=== PATIENT | female | born 1975 | race American Indian/Alaskan Native ===

== ENCOUNTER 2017-02-17 14:22 | Emergency (ER) | payer BC ==
[2017-02-17 14:22] VITALS: BMI 21.3
[2017-02-17 14:45] VITALS: TEMP 98.1
--- NOTE | 2017-02-17 15:51 | C.PDOC ---
History Of Present Illness 41 y/o female 11 weeks gestation is sent by saw runner (Dr. Jalloh) for evaluation on feeling hypotension, dizziness and nausea developed while at office. b/p was reported to be low in the office of dr jalloh. Patient denies sob , fever, chest pain, back pain, vaginal bleeding or any other any other complaints at this time. dr jalloh advises he will discuss with pmd (dr biggs) for admission. Time Seen by Provider: 02/17/17 15:51 Chief Complaint (Nursing): Dizziness/Lightheaded History Per: Patient History/Exam Limitations: no limitations Onset/Duration Of Symptoms: Hrs Past Medical History Reviewed: Historical Data, Nursing Documentation, Vital Signs Vital Signs: Last Vital Signs Temp 98.1 F 02/17/17 14:41 Pulse 68 02/17/17 17:00 Resp 18 02/17/17 17:00 BP 99/57 L 02/17/17 17:00 Pulse Ox 99 02/17/17 18:16 - Medical History PMH: Anxiety, Bronchitis, Fractures (TOE NO SURGERY), Gastritis, Kidney Stones ( PASSED), Mitral Valve Prolapse Surgical History: Endoscopy - [facility] Procedures CORONAR ARTERIOGR-2 CATH (08/30/13) INJECT/INFUSE NEC (12/15/04) LEFT HEART CARDIAC CATH (08/30/13) LT HEART ANGIOCARDIOGRAM (08/30/13) NONOPERATIVE EXAMS NEC (11/27/13) OTHER ENDOSCOPY OF SM INTEST (11/27/13) Family History: States: No Known Family Hx - Social History Hx Tobacco Use: No Hx Alcohol Use: No Hx Substance Use: No - Immunization History Hx Tetanus Toxoid Vaccination: No Hx Influenza Vaccination: No Hx Pneumococcal Vaccination: No Review Of Systems Except As Marked, All Systems Reviewed And Found Negative. Gastrointestinal: Positive for: Nausea Neurological: Positive for: Dizziness Physical Exam - Physical Exam Appears: Non-toxic, No Acute Distress Skin: Normal Color, Warm, Dry, No Rash Head: Atraumatic, Normacephalic Eye(s): bilateral: Normal Inspection Oral Mucosa: Moist Neck: Normal ROM, Supple Chest: Symmetrical Cardiovascular: Rhythm Regular, No Murmur Respiratory: Normal Breath Sounds, No Rales, No Rhonchi, No Wheezing Gastrointestinal/Abdominal: Tenderness (mild suprapubic ), No Guarding, No Rebound Back: No CVA Tenderness, No Paraspinal Tenderness Neurological/Psych: Oriented x3 ED Course And Treatment - Laboratory Results Result Diagrams: 02/17/17 16:16 02/17/17 16:16 O2 Sat by Pulse Oximetry: 99 (RA) Pulse Ox Interpretation: Normal Against Medical Advice - AMA Patient Left Against Medical Advice: The patient declines admission to the hospital and wishes to leave the Emergency Department. This action is against my medical advice. This decision was made with informed refusal. The patient was told that admission to the hospital is necessary. Explanation of the reasons why were discussed. The risks of leaving were explained to the patient and include, but are not limited to, worsening of known or currently unknown conditions, permanent disability and from undiagnosed or untreated conditions. The patient has the capacity to make this informed decision and understands my explanation of the current medical problem and risks of leaving. The patient voluntarily accepts these risks and signed an AMA form documenting our conversation. The patient was given the opportunity to ask questions and reconsider. The patient was encouraged to return to the Emergency Department at any time for further care. Medical Decision Making Medical Decision Making: r/o dehydration, ectopic, miscarriage- labs imaging penidng 615: pt reasseseD: pt sent in by dr jalloh for admission. now pt refuses, states she needs to go home to take care of work arrangements. signs ama Disposition - Disposition Disposition: AGAINST MEDICAL ADVICE Additional Instructions: you are declining admission to the hospital. return to er with worsening symptoms or concerns. Instructions: (ED), Weakness (ED) Forms: [facility] (Japanese) - Scribe Statement The provider has reviewed the documentation as recorded by the Scribtaco Gomez All medical record entries made by the Scribe were at my direction and personally dictated by me. I have reviewed the chart and agree that the record accurately reflects my personal performance of the history, physical exam, medical decision making, and the department course for this patient. I have also personally directed, reviewed, and agree with the discharge instructions and disposition.
[2017-02-17] MEDS ORDERED: Sodium Chloride 0.9% 1,000 ML IV ONE (15:55)
[2017-02-17] MEDS ORDERED: Sodium Chloride 0.9% 1,000 ML ONE (16:16)
[2017-02-17 16:21] LABS: BASO % 0.4 % (0.0-2.0); EOS # 0.1 K/uL (0.0-0.7); HEMATOCRIT 36.6 % (34.0-47.0); LYMPH # 2.5 K/uL (1.0-4.3); LYMPH % 37.2 % (20.0-40.0); MEAN CELL VOLUME 84.5 fL (81.0-99.0); MEAN CORPUSCULAR HEMOGLOBIN 27.5 pg (27.0-31.0); MEAN CORPUSCULAR HGB CONC 32.5 g/dL (33.0-37.0); MEAN PLATELET VOLUME 6.9 fL (7.2-11.7); MONO # 0.5 K/uL (0.0-0.8); MONO % 8.1 % (0.0-10.0); WHITE BLOOD COUNT 6.7 K/uL (4.8-10.8)
[2017-02-17 16:27] LABS: CHLORIDE 102 mmol/L (98-107)
[2017-02-17 16:28] LABS: POTASSIUM 3.9 mmol/L (3.6-5.2); SODIUM 136 mmol/L (132-148)
[2017-02-17 16:30] LABS: ALB/GLOB RATIO 1.3 (1.0-2.1); AST/SGOT 15 U/L (14-36); BILIRUBIN,TOTAL 1.1 mg/dL (0.2-1.3); CARBON DIOXIDE 21 mmol/L (22-30); GFR AFRICAN-AMERICAN > 60; TOTAL PROTEIN 7.5 g/dL (6.3-8.3)
[2017-02-17 16:31] LABS: ALKALINE PHOSPHATASE 47 U/L (38-126); ALT/SGPT 22 U/L (9-52); BLOOD UREA NITROGEN 6 mg/dL (7-17); CALCIUM 9.1 mg/dl (8.6-10.4); GLUCOSE,RANDOM 83 mg/dL (65-105)
[2017-02-17 17:06] LABS: URINE BACTERIA RARE (<OCC); URINE BILIRUBIN NEGATIVE (NEGATIVE); URINE BLOOD 1+ (NEGATIVE); URINE COLOR Colorless (YELLOW); URINE GLUCOSE (UA) NORMAL (Normal); URINE KETONE NEGATIVE (NEGATIVE); URINE LEUKOCYTE ESTERASE 1+ Leu/uL (Negative); URINE PROTEIN NEGATIVE (NEGATIVE); URINE UROBILINOGEN NORMAL mg/dL (0.2-1.0); WBC URINE 3 /hpf (0-5)
[2017-02-17 17:09] LABS: RBC URINE 3 /hpf (0-3)
--- NOTE | 2017-02-17 18:10 | US ---
PROCEDURE: First trimester ultrasound HISTORY: Abdominal pain and COMPARISON: None TECHNIQUE: Standard protocol for this study/examination. FINDINGS: LMP: 12/04/2016 Prior examinations from the current : None TECHNIQUE: Real-time 2D imaging, duplex and color Doppler. FINDINGS: Cardiac activity: Present Rate: 161 BPM Measurements: [place] rump length: 3.52 cm Gestational age based on CRL 10 weeks 3 days Gestational age based on gestational sac measurement 10 weeks 6 days Gestational age derived from LMP: 10 weeks 5 days HARIS based on LMP: 09/10/2017 HARIS based on biometry: 09/10/2017 Gestational concordance documented Yolk sac not identified Uterus: Unremarkable. No Cervical abnormalities: Negative examination for cervical dilatation or effacement. Closed cervix measures 4.2 cm Subchorionic hemorrhage: None ADNEXA: Right: Obscured by overlying bowel gas. Non diagnostic assessment of right ovary Left: Obscured by overlying bowel gas. Non diagnostic assessment of left ovary. Fluid in the cul-de-sac: None IMPRESSION: Ten weeks 5 days live intrauterine gestation. Gestational concordance documented.
[2017-02-17 18:16] VITALS: O2SAT 99
[2017-02-17 18:19] VITALS: BP 88/49; PULSE 71; RESP 20
== END 2017-02-17 19:04 | disposition left against medical advice (07) ==
LOC: C.ER 14:22
DX: O26.891 Other specified pregnancy related conditions, first trimester (principal); Z3A.11 11 weeks gestation of pregnancy; R53.1 Weakness
CPT/HCPCS: 76805; 76817; 80053; 81001; 84702; 84703; 85025; 85610; 85730; 96360; 99285; J7040

== ENCOUNTER 2017-02-18 22:04 | Inpatient (IN) | payer BC ==
[2017-02-18 22:04] VITALS: BMI 21.3
[2017-02-19] MEDS ORDERED: Sodium Chloride 0.9% 1,000 ML IV ONE (00:17)
[2017-02-19 00:45] LABS: BASO % 0.4 % (0.0-2.0); EOS # 0.1 K/uL (0.0-0.7); LYMPH # 2.9 K/uL (1.0-4.3); LYMPH % 37.1 % (20.0-40.0); MEAN CELL VOLUME 84.6 fL (81.0-99.0); MEAN CORPUSCULAR HGB CONC 33.1 g/dL (33.0-37.0); MEAN PLATELET VOLUME 7.2 fL (7.2-11.7); MONO # 0.6 K/uL (0.0-0.8); MONO % 7.3 % (0.0-10.0); NRBC % 0.4 % (0.0-2.0); RED CELL DISTRIBUTION WIDTH 13.5 % (11.5-14.5); WHITE BLOOD COUNT 7.7 K/uL (4.8-10.8)
[2017-02-19 00:51] LABS: ALB/GLOB RATIO 1.4 (1.0-2.1); ALKALINE PHOSPHATASE 47 U/L (38-126); ALT/SGPT 22 U/L (9-52); AST/SGOT 15 U/L (14-36); BILIRUBIN,TOTAL 1.3 mg/dL (0.2-1.3); BLOOD UREA NITROGEN 7 mg/dL (7-17); CALCIUM 9.4 mg/dl (8.6-10.4); CARBON DIOXIDE 20 mmol/L (22-30); CHLORIDE 100 mmol/L (98-107); GFR AFRICAN-AMERICAN > 60; GLUCOSE,RANDOM 82 mg/dL (65-105); POTASSIUM 3.8 mmol/L (3.6-5.2); SODIUM 135 mmol/L (132-148); TOTAL PROTEIN 7.4 g/dL (6.3-8.3)
--- NOTE | 2017-02-19 05:58 | C.PDOC ---
History Of Present Illness Pt is . She was sent in by Dr. Sam for admission due to dizziness and hypotension. She was seen here yesterday, but signed out AMA from the ED because she had to take care of something at home. She returns today to be admitted as planned. Time Seen by Provider: 02/18/17 23:50 Chief Complaint (Nursing): Dizziness/Lightheaded History Per: Patient Onset/Duration Of Symptoms: Days (few) Current Symptoms Are (Timing): Still Present Associated Symptoms Preceding Syncopal Episode: Lightheadedness, Worse With Standing Fall Associated With With Symptoms: No Severity: Moderate Additional History Per: Prior Records - Symptoms Of CVA Recent Head Trauma: No Past Medical History Reviewed: Historical Data, Nursing Documentation, Vital Signs Vital Signs: Last Vital Signs Temp 98 F 02/19/17 00:58 Pulse 67 02/19/17 02:38 Resp 20 02/19/17 02:38 BP 95/61 L 02/19/17 02:38 Pulse Ox 100 02/19/17 02:38 - Medical History PMH: Anxiety, Bronchitis, Fractures (TOE NO SURGERY), Gastritis, Kidney Stones ( PASSED), Mitral Valve Prolapse Surgical History: Endoscopy - [facility] Procedures CORONAR ARTERIOGR-2 CATH (08/30/13) INJECT/INFUSE NEC (12/15/04) LEFT HEART CARDIAC CATH (08/30/13) LT HEART ANGIOCARDIOGRAM (08/30/13) NONOPERATIVE EXAMS NEC (11/27/13) OTHER ENDOSCOPY OF SM INTEST (11/27/13) Family History: States: Unknown Family Hx - Social History Hx Tobacco Use: No Hx Alcohol Use: No Hx Substance Use: No - Immunization History Hx Tetanus Toxoid Vaccination: No Hx Influenza Vaccination: No Hx Pneumococcal Vaccination: No Review Of Systems Except As Marked, All Systems Reviewed And Found Negative. Constitutional: Negative for: Fever Cardiovascular: Positive for: Light Headedness. Negative for: Chest Pain Respiratory: Negative for: Shortness of Breath Gastrointestinal: Positive for: Nausea. Negative for: Vomiting, Abdominal Pain , Diarrhea Genitourinary: Negative for: Dysuria, Vaginal Bleeding, Pelvic Pain Musculoskeletal: Negative for: Neck Pain, Back Pain Skin: Negative for: Rash Neurological: Negative for: Weakness, Numbness, Seizures, Altered Mental Status Physical Exam - Physical Exam Appears: Non-toxic, No Acute Distress Skin: Normal Color, Warm, Dry, No Rash Head: Atraumatic, Normacephalic Eye(s): bilateral: Normal Inspection, PERRL, EOMI Neck: Normal ROM, Supple Cardiovascular: Rhythm Regular Respiratory: Normal Breath Sounds, No Accessory Muscle Use Gastrointestinal/Abdominal: Soft, No Tenderness Back: No CVA Tenderness Extremity: Normal ROM, No Pedal Edema, No Calf Tenderness Neurological/Psych: Oriented x3, Normal Speech, Normal Cognition, Normal Cranial Nerves, No Cerebellar Signs, Normal Motor, Normal Sensation ED Course And Treatment - Laboratory Results Result Diagrams: 02/19/17 00:34 02/19/17 00:34 Lab Interpretation: No Acute Changes ECG: Interpreted By Me, Viewed By Me ECG Rhythm: Sinus Rhythm ECG Interpretation: No Acute Changes Rate From EC O2 Sat by Pulse Oximetry: 100 Pulse Ox Interpretation: Normal Progress Note: Pt BP fluctuates between 80/40 and 110/70. - Physician Consult Information Physician Contacted: Garo Barba Jr. (PMD) Outcome Of Conversation: He did not call back after several attempts. Progress - Interventions Interventions:: Observation, Intravenous fluid - Data Reviewed Data Reviewed: Lab, EKG, Old records - Continuity of Care Discussed patient case with:: Patient, ED Nurse Disposition Discussed With : Arsalan Reese Comment: He accepted pt on hospitalist service as Dr. Barba can not be reached. Doctor Will See Patient In The: Hospital Counseled Patient/Family Regarding: Studies Performed, Diagnosis - Disposition Disposition: HOSPITALIZED Disposition Time: 06:04 Condition: FAIR - Clinical Impression Clinical Impression: Lightheadedness, Other hypotension,
--- NOTE | 2017-02-19 06:37 | CP.PCM.HP ---
<AnselmoNorah KrishnaDiana - Last Filed: 02/19/17 07:48> History of Present Illness - History of Present Illness History of Present Illness: CC: " Lightheaded and dizzy." HPI: 41 year old female with past medical history of hypotension and who is currently 11 weeks who presents to the emergency room for lightheadedness and dizziness. Patient states she has had hypotension in the past and has seen Dr. Sam for these symptoms and has had a cath procedure done in 2013 and nothings was found. She states she is currently 11 weeks and her symptoms have gotten worse. She states she has not loss consciousness but she feels very lightheaded where she has to lay down because she does feel like she will pass out. Patient also states she does of shortness of breath, headache, nausea and vomiting. She denies chest pain, palpitations, fever, diarrhea, constipation, vaginal discharge or vaginal bleeding. She states Dr. Sam told her to come to the hospital yesterday but she could not stay because she had to go to work in [place] so today she has come to the hospital to follow up why her symptoms are persistent. She states she did see her Review Trainer about a few days ago and everything was normal with the and she has a follow up appointment in 2 weeks. PMD: Dr. Barba Patent Counsel: Dr. 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 absent: Chills, Fever - EENT Eyes: absent: Blurred Vision, Change in Vision Nose/Mouth/Throat: absent: Nasal Congestion, Nasal Discharge, Sore Throat - Cardiovascular Cardiovascular: Dyspnea, Lightheadedness. absent: Chest Pain, Palpitations, Pedal Edema - Respiratory Respiratory: Dyspnea. absent: Cough, Wheezing - Gastrointestinal Gastrointestinal: Nausea, Vomiting. absent: Abdominal Pain, Constipation, Diarrhea - Genitourinary Genitourinary: absent: Dysuria, Hematuria - Reproductive: Female Reproductive:Female: absent: Abnormal Vaginal Bleeding, Vaginal Discharge - Musculoskeletal Musculoskeletal: absent: Numbness, Tingling - Neurological Neurological: Dizziness, Headaches, Weakness. absent: Syncope, Tingling - Endocrine Endocrine: absent: Palpitations Past Patient History - Infectious Disease Hx of Infectious Diseases: None - Tetanus Immunizations Tetanus Immunization: Unknown - Past Medical History & Family History Past Medical History?: Yes - Past Social History Smoking Status: Never Smoked - CARDIAC Hx Mitral Valve Prolapse: Yes - PULMONARY Hx Bronchitis: Yes - NEUROLOGICAL Hx Dizziness: Yes - HEENT Hx HEENT Problems: No - RENAL Hx Kidney Stones: Yes (PASSED) - ENDOCRINE/METABOLIC Hx Endocrine Disorders: No - HEMATOLOGICAL/ONCOLOGICAL Hx Blood Disorders: No - INTEGUMENTARY Hx Dermatological Problems: No - MUSCULOSKELETAL/RHEUMATOLOGICAL Hx Fractures: Yes (TOE NO SURGERY) - GASTROINTESTINAL Hx Gastritis: Yes - GENITOURINARY/GYNECOLOGICAL Hx Genitourinary Disorders: No - PSYCHIATRIC Hx Anxiety: Yes Hx Substance Use: No - SURGICAL HISTORY Hx Surgeries: Yes Hx Cardiac Catheterization: Yes (08/30/2013) Hx Section: Yes (X1) - ANESTHESIA Hx Anesthesia: Yes Hx Anesthesia Reactions: Yes (VOMITING) Meds Allergies/Adverse Reactions: Allergies Allergy/AdvReac Type Severity Reaction Status Date / Time azithromycin [From Zithromax] Allergy Verified 02/17/17 14:47 morphine Allergy Verified 02/17/17 14:47 Physical Exam - Constitutional Appears: No Acute Distress - Head Exam Head Exam: ATRAUMATIC, NORMAL INSPECTION, NORMOCEPHALIC - Eye Exam Eye Exam: EOMI, Normal appearance, PERRL Pupil Exam: NORMAL ACCOMODATION - ENT Exam ENT Exam: Mucous Membranes Moist - Respiratory Exam Respiratory Exam: Clear to Auscultation Bilateral, NORMAL BREATHING PATTERN. absent: Rales, Rhonchi, Wheezes, Stridor - Cardiovascular Exam Cardiovascular Exam: REGULAR RHYTHM, RRR, +S1, +S2 - GI/Abdominal Exam GI & Abdominal Exam: Normal Bowel Sounds, Soft. absent: Tenderness - Extremities Exam Extremities exam: Positive for: normal inspection. Negative for: pedal edema, tenderness - Neurological Exam Neurological exam: Alert, CN II-XII Intact, Oriented x3 - Expanded Neurological Exam Expanded Patient oriented to: person, place, time Cranial nerves: EOM's Intact: Normal Sensory exam: Lower Extremity Light Touch: Normal, Upper Extremity Light Touch: Normal Neuro motor strength exam: Left Upper Extremity: 4, Right Upper Extremity: 5, Left Lower Extremity: 4, Right Lower Extremity: 5 Coma Scale Eye Opening: SPONTANEOUS Coma Scale Motor Response: OBEYS COMMANDS - Psychiatric Exam Psychiatric exam: Normal Affect, Normal Mood - Skin Skin Exam: Normal Color, Warm Results - Vital Signs Recent Vital Signs: Last Vital Signs Temp 97.2 F L 02/19/17 06:18 Pulse 65 02/19/17 06:18 Resp 20 02/19/17 06:18 BP 90/55 L 02/19/17 06:18 Pulse Ox 98 02/19/17 06:18 - Labs Result Diagrams: 02/19/17 00:34 02/19/17 00:34 Labs: Laboratory Results - last 24 hr 02/19/17 02/19/17 00:34 00:34 WBC 7.7 RBC 4.26 Hgb 11.9 Hct 36.0 MCV 84.6 MCH 28.0 MCHC 33.1 RDW 13.5 Plt Count 273 MPV 7.2 Neut % (Auto) 54.2 Lymph % (Auto) 37.1 [place] % (Auto) 7.3 Eos % (Auto) 1.0 Baso % (Auto) 0.4 Neut # 4.2 Lymph # 2.9 [place] # 0.6 Eos # 0.1 Baso # 0.0 Sodium 135 Potassium 3.8 Chloride 100 Carbon Dioxide 20 L Anion Gap 19 BUN 7 Creatinine 0.5 L Est GFR ( Amer) > 60 Est GFR (Non-Af Amer) > 60 Random Glucose 82 Calcium 9.4 Total Bilirubin 1.3 AST 15 ALT 22 Alkaline Phosphatase 47 Total Protein 7.4 Albumin 4.3 Globulin 3.1 Albumin/Globulin Ratio 1.4 Beta HCG, Quant 82265.00 Assessment & Plan - Assessment and Plan (Free Text) Assessment: 1.) Dizziness/Lightheaded Cardiology Consult: Dr. Sam --> help appreciated - f/u ECHO - f/u ARYA x3 - orthostatic vitals 2.) 11 weeks - vitamins <Arsalan Reese A - Last Filed: 02/19/17 19:07> Results - Vital Signs Recent Vital Signs: Last Vital Signs Temp 98.1 F 02/19/17 16:00 Pulse 72 02/19/17 16:00 Resp 20 02/19/17 16:00 BP 98/61 L 02/19/17 16:00 Pulse Ox 99 02/19/17 16:00 - Labs Result Diagrams: 02/19/17 00:34 02/19/17 00:34 Labs: Laboratory Results - last 24 hr 02/19/17 02/19/17 08:34 17:05 Total Creatine Kinase 52 46 CK-MB (Mass) < 0.22 < 0.22 Troponin I, Quant < 0.0120 < 0.0120 Assessment & Plan - Date & Time Date: 02/19/17 (I have seen and examined the patient. I agree with the findings and plan of care as documented by Dr. Briones. Patient with dizziness and hypotension. 11 weeks . History of prior episodes of dizziness and hypotension. Check orthostatic vitals, 2D echo, and cardio consult - Dr. Sam. Fall precautions. IVF. Monitor for acute changes.) Time: 19:06 Attending/Attestation - Attestation I have personally seen and examined this patient.: Yes I have fully participated in the care of the patient.: Yes I have reviewed all pertinent clinical information: Yes
[2017-02-19] MEDS: Prenatal Multivit/Folic Acid/Iron Tab PO SCH (10:02)
[2017-02-19] MEDS ORDERED: Sodium Chloride 0.9% 1,000 ML IV SCH (17:30)
--- NOTE | 2017-02-19 20:16 | CP.PCM.PN ---
<Kelly Dawson - Last Filed: 02/19/17 20:14> Subjective - Date & Time of Evaluation Date of Evaluation: 02/19/17 Time of Evaluation: 07:00 - Subjective Subjective: PGY1- Medicine Note- Dr. Barba's Service Patient seen and examined. Patient feeling okay. Patient has no lightheadedness when sitting. Patient denies chest pain, sob, abdominal pain, n/v, c/d. Objective - Vital Signs/Intake and Output Vital Signs (last 24 hours): Temp Pulse Resp BP Pulse Ox 98.1 F 69 20 98/61 L 99 02/19/17 16:00 02/19/17 16:00 02/19/17 16:00 02/19/17 16:00 02/19/17 16:00 - Medications Medications: Current Medications Sodium Chloride (Sodium Chloride 0.9%) 1,000 mls @ 75 mls/hr IV .[id number] [facility] Stop: 02/20/17 17:30 Last Admin: 02/19/17 17:35 Dose: 75 mls/hr Multivit/Folic Acid/Iron () 1 tab PO DAILY [facility] Last Admin: 02/19/17 10:02 Dose: 1 tab - Constitutional Appears: Non-toxic, No Acute Distress - Head Exam Head Exam: ATRAUMATIC, NORMAL INSPECTION, NORMOCEPHALIC - Eye Exam Eye Exam: EOMI, Normal appearance - ENT Exam ENT Exam: Mucous Membranes Moist - Neck Exam Neck Exam: Full ROM. absent: Tenderness - Respiratory Exam Respiratory Exam: Clear to Ausculation Bilateral, NORMAL BREATHING PATTERN - Cardiovascular Exam Cardiovascular Exam: REGULAR RHYTHM, RRR - GI/Abdominal Exam GI & Abdominal Exam: Normal Bowel Sounds Additional comments: 11 weeks - Extremities Exam Extremities Exam: Full ROM, Normal Inspection. absent: Pedal Edema - Neurological Exam Neurological Exam: Alert, Awake, Oriented x3 - Psychiatric Exam Psychiatric exam: Normal Affect, Normal Mood - Skin Skin Exam: Intact, Normal Color, Warm Assessment and Plan - Assessment and Plan (Free Text) Assessment: 1.) Dizziness/Lightheaded Cardiology Consult: Dr. Sam --> help appreciated - f/u ECHO - ARYA negative x 2 - orthostatic vitals 2.) 11 weeks - vitamins <Garo Barba Jr. - Last Filed: 02/20/17 10:22> Objective - Vital Signs/Intake and Output Vital Signs (last 24 hours): Temp Pulse Resp BP Pulse Ox 98.6 F 74 20 90/55 L 98 02/20/17 08:00 02/20/17 08:00 02/20/17 08:00 02/20/17 08:00 02/20/17 08:00 - Medications Medications: Current Medications Sodium Chloride (Sodium Chloride 0.9%) 1,000 mls @ 75 mls/hr IV .[id number] [facility] Stop: 02/20/17 17:30 Last Admin: 02/19/17 17:35 Dose: 75 mls/hr Multivit/Folic Acid/Iron () 1 tab PO DAILY [facility] Last Admin: 02/19/17 10:02 Dose: 1 tab - Labs Labs: 02/20/17 08:15 02/20/17 08:15 Attending/Attestation - Attestation I have personally seen and examined this patient.: Yes I have fully participated in the care of the patient.: Yes I have reviewed all pertinent clinical information, including history, physical exam and plan: Yes Notes (Text): 02/20/17 10:22 Agree with resident note and plan of care
--- NOTE | 2017-02-19 22:31 | CP.PCM.CON ---
History of Present Illness - History of Present Illness History of Present Illness: CC: " Lightheaded and dizzy." HPI: 41 year old female with past medical history of hypotension and who is currently 11 weeks who presents to the emergency room for lightheadedness and dizziness. Patient states she has had hypotension in the past and has seen by me for these symptoms and has had a cath procedure done in 2013 and nothings was found. She states she is currently 11 weeks and her symptoms have gotten worse. She states she has not loss consciousness but she feels very lightheaded where she has to lay down because she does feel like she will pass out. Patient also states she does of shortness of breath, headache, nausea and vomiting. She denies chest pain, palpitations, fever, diarrhea, constipation, vaginal discharge or vaginal bleeding. I advised her to come to the hospital yesterday but she could not stay because she had to go to work in [place] so today she has come to the hospital to follow up why her symptoms are persistent. She states she did see her Poacher Wringer Operator about a few days ago and everything was normal with the and she has a follow up appointment in 2 weeks. PMD: Dr. 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 absent: Chills, Fever - EENT Eyes: absent: Blurred Vision, Change in Vision Nose/Mouth/Throat: absent: Nasal Congestion, Nasal Discharge, Sore Throat - Cardiovascular Cardiovascular: Dyspnea, Lightheadedness. absent: Chest Pain, Palpitations, Pedal Edema - Respiratory Respiratory: Dyspnea. absent: Cough, Wheezing - Gastrointestinal Gastrointestinal: Nausea, Vomiting. absent: Abdominal Pain, Constipation, Diarrhea - Genitourinary Genitourinary: absent: Dysuria, Hematuria - Reproductive: Female Reproductive:Female: absent: Abnormal Vaginal Bleeding, Vaginal Discharge - Musculoskeletal Musculoskeletal: absent: Numbness, Tingling - Neurological Neurological: Dizziness, Headaches, Weakness. absent: Syncope, Tingling - Endocrine Endocrine: absent: Palpitations Physical Exam - Constitutional Appears: No Acute Distress - Head Exam Head Exam: ATRAUMATIC, NORMAL INSPECTION, NORMOCEPHALIC - Eye Exam Eye Exam: EOMI, Normal appearance, PERRL Pupil Exam: NORMAL ACCOMODATION - ENT Exam ENT Exam: Mucous Membranes Moist - Respiratory Exam Respiratory Exam: Clear to Auscultation Bilateral, NORMAL BREATHING PATTERN. absent: Rales, Rhonchi, Wheezes, Stridor - Cardiovascular Exam Cardiovascular Exam: REGULAR RHYTHM, RRR, +S1, +S2 - GI/Abdominal Exam GI & Abdominal Exam: Normal Bowel Sounds, Soft. absent: Tenderness - Extremities Exam Extremities exam: Positive for: normal inspection. Negative for: pedal edema, tenderness - Neurological Exam Neurological exam: Alert, CN II-XII Intact, Oriented x3 - Expanded Neurological Exam Expanded Patient oriented to: person, place, time Cranial nerves: EOM's Intact: Normal Sensory exam: Lower Extremity Light Touch: Normal, Upper Extremity Light Touch: Normal Neuro motor strength exam: Left Upper Extremity: 4, Right Upper Extremity: 5, Left Lower Extremity: 4, Right Lower Extremity: 5 Coma Scale Eye Opening: SPONTANEOUS Coma Scale Motor Response: OBEYS COMMANDS - Psychiatric Exam Psychiatric exam: Normal Affect, Normal Mood - Skin Skin Exam: Normal Color, Warm Past Patient History - Infectious Disease Hx of Infectious Diseases: None - Tetanus Immunizations Tetanus Immunization: Unknown - Past Medical History & Family History Past Medical History?: Yes - Past Social History Smoking Status: Never Smoked - CARDIAC Hx Mitral Valve Prolapse: Yes Other/Comment: enlarged heart - PULMONARY Hx Bronchitis: Yes - NEUROLOGICAL Hx Dizziness: Yes - HEENT Hx HEENT Problems: No - RENAL Hx Kidney Stones: Yes (PASSED) - ENDOCRINE/METABOLIC Hx Endocrine Disorders: No - HEMATOLOGICAL/ONCOLOGICAL Hx Blood Disorders: No - INTEGUMENTARY Hx Dermatological Problems: No - MUSCULOSKELETAL/RHEUMATOLOGICAL Hx Arthritis: Yes Hx Falls: No Hx Fractures: Yes (TOE NO SURGERY) - GASTROINTESTINAL Hx Gastritis: Yes Hx Gastroesophageal Reflux: Yes - GENITOURINARY/GYNECOLOGICAL Hx Genitourinary Disorders: No - PSYCHIATRIC Hx Psychophysiologic Disorder: No Hx Substance Use: No - SURGICAL HISTORY Hx Surgeries: Yes Hx Cardiac Catheterization: Yes (08/30/2013) Hx Section: Yes (X1) Other/Comment: ovarian cyst - ANESTHESIA Hx Anesthesia: Yes Hx Anesthesia Reactions: Yes (VOMITING) Meds Allergies/Adverse Reactions: Allergies Allergy/AdvReac Type Severity Reaction Status Date / Time azithromycin [From Zithromax] Allergy Verified 02/17/17 14:47 morphine Allergy Verified 02/17/17 14:47 - Medications Medications: Current Medications Sodium Chloride (Sodium Chloride 0.9%) 1,000 mls @ 75 mls/hr IV .[id number] [facility] M Stop: 02/20/17 17:30 Last Admin: 02/19/17 17:35 Dose: 75 mls/hr Multivit/Folic Acid/Iron () 1 tab PO DAILY VICTOR M Last Admin: 02/19/17 10:02 Dose: 1 tab Results - Vital Signs Recent Vital Signs: Last Vital Signs Temp 98.1 F 02/19/17 16:00 Pulse 69 02/19/17 16:00 Resp 20 02/19/17 16:00 BP 98/61 L 02/19/17 16:00 Pulse Ox 99 02/19/17 16:00 - Labs Result Diagrams: 02/19/17 00:34 02/19/17 00:34 Labs: Laboratory Results - last 24 hr 02/19/17 02/19/17 08:34 17:05 Total Creatine Kinase 52 46 CK-MB (Mass) < 0.22 < 0.22 Troponin I, Quant < 0.0120 < 0.0120 Assessment & Plan - Assessment and Plan (Free Text) Assessment: Assessment & Plan - Assessment and Plan (Free Text) Assessment: 1.) Dizziness/Lightheaded - f/u ECHO - f/u ARYA x3 - orthostatic vitals 2.) 11 weeks - vitamins
[2017-02-20 08:23] LABS: BASO % 0.7 % (0.0-2.0); EOS % 0.9 % (0.0-4.0); HEMATOCRIT 33.1 % (34.0-47.0); LYMPH # 1.9 K/uL (1.0-4.3); LYMPH % 39.2 % (20.0-40.0); MEAN CELL VOLUME 84.8 fL (81.0-99.0); MEAN CORPUSCULAR HEMOGLOBIN 27.9 pg (27.0-31.0); MEAN CORPUSCULAR HGB CONC 32.8 g/dL (33.0-37.0); MEAN PLATELET VOLUME 7.5 fL (7.2-11.7); MONO # 0.5 K/uL (0.0-0.8); MONO % 9.4 % (0.0-10.0); NRBC % 0.1 % (0.0-2.0); RED CELL DISTRIBUTION WIDTH 13.5 % (11.5-14.5); WHITE BLOOD COUNT 4.9 K/uL (4.8-10.8)
[2017-02-20 09:10] LABS: ALB/GLOB RATIO 1.1 (1.0-2.1); ALKALINE PHOSPHATASE 38 U/L (38-126); ALT/SGPT 20 U/L (9-52); AST/SGOT 15 U/L (14-36); BILIRUBIN,TOTAL 1.5 mg/dL (0.2-1.3); BLOOD UREA NITROGEN 5 mg/dL (7-17); CALCIUM 8.6 mg/dl (8.6-10.4); CARBON DIOXIDE 20 mmol/L (22-30); CHLORIDE 105 mmol/L (98-107); GFR AFRICAN-AMERICAN > 60; GLUCOSE,RANDOM 82 mg/dL (65-105); PHOSPHOROUS 3.5 mg/dL (2.5-4.5); POTASSIUM 3.7 mmol/L (3.6-5.2); SODIUM 137 mmol/L (132-148); TOTAL PROTEIN 6.4 g/dL (6.3-8.3)
[2017-02-20 10:04] LABS: MAGNESIUM 1.7 mg/dL (1.6-2.3)
[2017-02-20] MEDS: Prenatal Multivit/Folic Acid/Iron Tab PO SCH (10:51)
--- NOTE | 2017-02-20 14:24 | CP.PCM.CON ---
<KAUSHIK GARDUNOJA - Last Filed: 02/20/17 14:57> History of Present Illness - History of Present Illness History of Present Illness: Kristen Garduno, PGY1, Consult Note for Dr. Acevedo: CC: lightheadedness and dizziness HPI: 41 female, presents for lightheadedness and dizziness x few days. Pt is currently 11 weeks , LMP 12/04/2016. Pt states that she has had nausea since she was 6 weeks , but for the past 2 weeks, pt has been having worsening of her nausea and has had 2-3 episodes of career center advisor vomiting episodes, and sometimes, 1-2 night emesis as well. Emesis is nonbilious, nonbloody, occurs before eating, has no associated abdominal pain; mostly triggered by smell or foods. Pt has associated hyperolfaction (ambrose urine, red meat), ptalism, irritability, dizziness, weakness , fatigue, and decreased concentration. Pt denies weight loss since her , states that she is the same weight when she started her ( 130 lbs). Pt denies sob, cp, palpitations, diaphoresis, but does complain of urinary frequency, denies hematuria, dysuria, vaginal spotting/bleeding/ discharge, diarrhea, constipaton. For the past three weeks, pt was using Diclegis 10 mg Po daily (prescribed by her OB), it had been helping her, but now only improves her symptoms. Pt also c/o heartburn, which has returned since her started. She states she did see her Women'S Lacrosse Coach about a few days ago and everything was normal with the and she has a follow up appointment in 2 weeks. PMD: Dr. Barba Women'S Lacrosse Coach: Dr Marley ([place]) Intramural Director: Dr. 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[facility]; denies smoking, alcohol and illicit drug use Review of Systems - Review of Systems All systems: reviewed and no additional remarkable complaints except Review of Systems: as per hpi Past Patient History - Infectious Disease Hx of Infectious Diseases: None - Tetanus Immunizations Tetanus Immunization: Unknown - Past Medical History & Family History Past Medical History?: Yes - Past Social History Smoking Status: Never Smoked - CARDIAC Hx Mitral Valve Prolapse: Yes Other/Comment: enlarged heart - PULMONARY Hx Bronchitis: Yes - NEUROLOGICAL Hx Dizziness: Yes - HEENT Hx HEENT Problems: No - RENAL Hx Kidney Stones: Yes (PASSED) - ENDOCRINE/METABOLIC Hx Endocrine Disorders: No - HEMATOLOGICAL/ONCOLOGICAL Hx Blood Disorders: No - INTEGUMENTARY Hx Dermatological Problems: No - MUSCULOSKELETAL/RHEUMATOLOGICAL Hx Arthritis: Yes Hx Falls: No Hx Fractures: Yes (TOE NO SURGERY) - GASTROINTESTINAL Hx Gastritis: Yes Hx Gastroesophageal Reflux: Yes - GENITOURINARY/GYNECOLOGICAL Hx Genitourinary Disorders: No - PSYCHIATRIC Hx Psychophysiologic Disorder: No Hx Substance Use: No - SURGICAL HISTORY Hx Surgeries: Yes Hx Cardiac Catheterization: Yes (08/30/2013) Hx Section: Yes (X1) Other/Comment: ovarian cyst - ANESTHESIA Hx Anesthesia: Yes Hx Anesthesia Reactions: Yes (VOMITING) Meds Allergies/Adverse Reactions: Allergies Allergy/AdvReac Type Severity Reaction Status Date / Time azithromycin [From Zithromax] Allergy Verified 02/17/17 14:47 morphine Allergy Verified 02/17/17 14:47 - Medications Medications: Current Medications Sodium Chloride (Sodium Chloride 0.9%) 1,000 mls @ 75 mls/hr IV .[id number] [facility] Stop: 02/20/17 17:30 Last Admin: 02/19/17 17:35 Dose: 75 mls/hr Multivit/Folic Acid/Iron () 1 tab PO DAILY [facility] Last Admin: 02/20/17 10:51 Dose: 1 tab Physical Exam - Constitutional Appears: Non-toxic, No Acute Distress - Head Exam Head Exam: ATRAUMATIC, NORMOCEPHALIC - Eye Exam Eye Exam: EOMI, PERRL. absent: Conjunctival injection, Scleral icterus Pupil Exam: NORMAL ACCOMODATION, PERRL. absent: Irregular, Unequal - ENT Exam ENT Exam: Mucous Membranes Dry - Neck Exam Neck exam: Positive for: Normal Inspection. Negative for: Lymphadenopathy, Thyromegaly - Respiratory Exam Respiratory Exam: Clear to Auscultation Bilateral, NORMAL BREATHING PATTERN. absent: Accessory Muscle Use, Chest Wall Tenderness, Rales, Rhonchi, Wheezes - Cardiovascular Exam Cardiovascular Exam: RRR, +S1, +S2. absent: Systolic Murmur - GI/Abdominal Exam GI & Abdominal Exam: Normal Bowel Sounds, Soft. absent: Distended, Guarding, Organomegaly, Rebound, Tenderness - Extremities Exam Extremities exam: Positive for: normal capillary refill, normal inspection, pedal pulses present. Negative for: calf tenderness, joint swelling, pedal edema - Back Exam Back exam: absent: CVA tenderness (L), CVA tenderness (R) - Neurological Exam Neurological exam: Alert, CN II-XII Intact, Oriented x3 - Psychiatric Exam Psychiatric exam: Normal Affect, Normal Mood - Skin Skin Exam: Dry, Intact, Pallor, Warm Results - Vital Signs Recent Vital Signs: Last Vital Signs Temp 98.6 F 02/20/17 08:00 Pulse 74 02/20/17 08:00 Resp 20 02/20/17 08:00 BP 90/55 L 02/20/17 08:00 Pulse Ox 98 02/20/17 08:00 - Labs Result Diagrams: 02/20/17 08:15 02/20/17 08:15 Labs: Laboratory Results - last 24 hr 02/19/17 02/19/17 02/20/17 17:05 22:55 08:15 WBC 4.9 RBC 3.90 Hgb 10.9 L Hct 33.1 L MCV 84.8 MCH 27.9 MCHC 32.8 L RDW 13.5 Plt Count 247 MPV 7.5 Neut % (Auto) 49.8 L Lymph % (Auto) 39.2 Amelia % (Auto) 9.4 Eos % (Auto) 0.9 Baso % (Auto) 0.7 Neut # 2.5 Lymph # 1.9 Amelia # 0.5 Eos # 0.0 Baso # 0.0 Sodium Potassium Chloride Carbon Dioxide Anion Gap BUN Creatinine Est GFR ( Amer) Est GFR (Non-Af Amer) Random Glucose Calcium Phosphorus Magnesium Total Bilirubin AST ALT Alkaline Phosphatase Total Creatine Kinase 46 45 CK-MB (Mass) < 0.22 < 0.22 Troponin I, Quant < 0.0120 < 0.0120 Total Protein Albumin Globulin Albumin/Globulin Ratio 02/20/17 08:15 WBC RBC Hgb Hct MCV MCH MCHC RDW Plt Count MPV Neut % (Auto) Lymph % (Auto) Amelia % (Auto) Eos % (Auto) Baso % (Auto) Neut # Lymph # Amelia # Eos # Baso # Sodium 137 Potassium 3.7 Chloride 105 Carbon Dioxide 20 L Anion Gap 16 BUN 5 L Creatinine 0.5 L Est GFR ( Amer) > 60 Est GFR (Non-Af Amer) > 60 Random Glucose 82 Calcium 8.6 Phosphorus 3.5 Magnesium 1.7 Total Bilirubin 1.5 H AST 15 ALT 20 Alkaline Phosphatase 38 Total Creatine Kinase CK-MB (Mass) Troponin I, Quant Total Protein 6.4 Albumin 3.3 L D Globulin 3.1 Albumin/Globulin Ratio 1.1 Assessment & Plan - Assessment and Plan (Free Text) Assessment: 41 , with PMH GERD, presents for lightheadedness, dizziness, hypotension. Plan: Hypotension/lightheadedness/dizziness: - 2/2 likely excessive nausea and vomiting vs cardiac etiology vs orthostatic - Received 1L NS bolus in ED, continue with IV hydration; currently tolerating regular diet - Consider obtaining TSH, UA, Urine culture, amylase, lipase level - Pt has a hx of Gilbert disease, consider obtaining abdominal US. - Pt's last vomiting episode was prior to admission, no new episodes; pt still complains of nausea. - Avoid foods, smells that trigger n/v episodes; Start Diclegis, christiano capsules , reglan 10 mg PO q 8h prn - Consider starting Famotidine ( category B) for GERD symptoms Other management per primary team. Discussed with attending, Dr. Acevedo. Annabelle Garduno, PGY1 - Date & Time Date: 02/20/17 Time: 14:30 <Ellyn Acevedo - Last Filed: 02/20/17 17:28> Meds - Medications Medications: Current Medications Sodium Chloride (Sodium Chloride 0.9%) 1,000 mls @ 75 mls/hr IV .[id number] [facility]CTOR M Stop: 02/20/17 17:30 Last Admin: 02/19/17 17:35 Dose: 75 mls/hr Metoclopramide HCl (Reglan) 10 mg IVP Q8H PRN PRN Reason: Nausea/Vomiting Multivit/Folic Acid/Iron () 1 tab PO DAILY VICTOR M Last Admin: 02/20/17 10:51 Dose: 1 tab Results - Vital Signs Recent Vital Signs: Last Vital Signs Temp 98 F 02/20/17 15:14 Pulse 82 02/20/17 15:14 Resp 18 02/20/17 15:14 BP 88/48 L 02/20/17 15:14 Pulse Ox 95 02/20/17 15:14 - Labs Result Diagrams: 02/20/17 08:15 02/20/17 08:15 Labs: Laboratory Results - last 24 hr 02/19/17 02/19/17 02/20/17 17:05 22:55 08:15 WBC 4.9 RBC 3.90 Hgb 10.9 L Hct 33.1 L MCV 84.8 MCH 27.9 MCHC 32.8 L RDW 13.5 Plt Count 247 MPV 7.5 Neut % (Auto) 49.8 L Lymph % (Auto) 39.2 Amelia % (Auto) 9.4 Eos % (Auto) 0.9 Baso % (Auto) 0.7 Neut # 2.5 Lymph # 1.9 Amelia # 0.5 Eos # 0.0 Baso # 0.0 Sodium Potassium Chloride Carbon Dioxide Anion Gap BUN Creatinine Est GFR ( Amer) Est GFR (Non-Af Amer) Random Glucose Calcium Phosphorus Magnesium Total Bilirubin AST ALT Alkaline Phosphatase Total Creatine Kinase 46 45 CK-MB (Mass) < 0.22 < 0.22 Troponin I, Quant < 0.0120 < 0.0120 Total Protein Albumin Globulin Albumin/Globulin Ratio Amylase Lipase 02/20/17 02/20/17 08:15 16:40 WBC RBC Hgb Hct MCV MCH MCHC RDW Plt Count MPV Neut % (Auto) Lymph % (Auto) Amelia % (Auto) Eos % (Auto) Baso % (Auto) Neut # Lymph # Amelia # Eos # Baso # Sodium 137 Potassium 3.7 Chloride 105 Carbon Dioxide 20 L Anion Gap 16 BUN 5 L Creatinine 0.5 L Est GFR ( Amer) > 60 Est GFR (Non-Af Amer) > 60 Random Glucose 82 Calcium 8.6 Phosphorus 3.5 Magnesium 1.7 Total Bilirubin 1.5 H AST 15 ALT 20 Alkaline Phosphatase 38 Total Creatine Kinase CK-MB (Mass) Troponin I, Quant Total Protein 6.4 Albumin 3.3 L D Globulin 3.1 Albumin/Globulin Ratio 1.1 Amylase 62 Lipase 46 Attending/Attestation - Attestation I have personally seen and examined this patient.: Yes I have fully participated in the care of the patient.: Yes I have reviewed all pertinent clinical information: Yes Notes (Text): 02/20/17 17:[address] Sam to see patient: 11 weeks , nausea, "excessive vomiting ". Patient seen and evaluated by me with Resident. I agree with the above as documented. Patient received in room 570-A: significant person present. Patient has no Ob- related concerns: (+) nausea "but it won't come out". Denies lower abdominal pain; vaginal bleeding or leakage of fluid per vagina. Patient has an Ob provider - Zoya; poor obstetric history - encourage compliance with visits. Continue diclegis; and famotidine for GERD symptoms. Rest of medical care - as per primary team Thank you for the pleasure of this consultation.
--- NOTE | 2017-02-20 15:24 | CP.PCM.PN ---
Subjective - Date & Time of Evaluation Date of Evaluation: 02/20/17 Time of Evaluation: 07:00 - Subjective Subjective: PGY1- Medicine Note- Dr. Barba's service Patient seen and examined at bedside and in no acute distress. Patient feels okay while she is laying in bed, but still says she gets light headed and dizzy when she gets up. Patient denies chest pain, shortness of breath, abdominal pain , nausea and vomiting. Objective - Vital Signs/Intake and Output Vital Signs (last 24 hours): Temp Pulse Resp BP Pulse Ox 98 F 82 18 88/48 L 95 02/20/17 15:14 02/20/17 15:14 02/20/17 15:14 02/20/17 15:14 02/20/17 15:14 - Medications Medications: Current Medications Sodium Chloride (Sodium Chloride 0.9%) 1,000 mls @ 75 mls/hr IV .[id number] [facility] M Stop: 02/20/17 17:30 Last Admin: 02/19/17 17:35 Dose: 75 mls/hr Multivit/Folic Acid/Iron () 1 tab PO DAILY [facility] M Last Admin: 02/20/17 10:51 Dose: 1 tab - Labs Labs: 02/20/17 08:15 02/20/17 08:15 - Constitutional Appears: Non-toxic, No Acute Distress - Head Exam Head Exam: ATRAUMATIC, NORMAL INSPECTION, NORMOCEPHALIC - Eye Exam Eye Exam: EOMI, Normal appearance - ENT Exam ENT Exam: Mucous Membranes Moist - Neck Exam Neck Exam: Full ROM. absent: Tenderness - Respiratory Exam Respiratory Exam: Clear to Ausculation Bilateral, NORMAL BREATHING PATTERN. absent: Rales, Rhonchi, Wheezes, Respiratory Distress, Stridor - Cardiovascular Exam Cardiovascular Exam: REGULAR RHYTHM, RRR. absent: Gallop, Rubs, Murmur - GI/Abdominal Exam GI & Abdominal Exam: Distended, Soft, Normal Bowel Sounds Additional comments: patient 11 weeks - Extremities Exam Extremities Exam: Full ROM, Normal Inspection. absent: Pedal Edema - Neurological Exam Neurological Exam: Alert, Awake, Oriented x3 - Psychiatric Exam Psychiatric exam: Normal Affect, Normal Mood - Skin Skin Exam: Intact, Normal Color, Warm Assessment and Plan - Assessment and Plan (Free Text) Assessment: 1.) Dizziness/Lightheaded Cardiology Consult: Dr. Flaco --> help appreciated - ARYA negative x 3 - orthostatic vitals: lying down: 100/63, sittin/69, standin/69 -f/u TSH, UA, Urine CUlture, amylase, lipase -f/u ECHO 2.) 11 weeks - vitamins -Dr. Acevedo (OBGYN) consulted, help appreciated -f/u transvaginal and pelvic ultrasound 3) Nausea NS 75mls/ hr Reglan 10mg po q8h prn 4) hx Gilbert Syndrome -f/u abdominal ultrasound 5) Prophylaxis patient ambulatory, no scds needed
--- NOTE | 2017-02-20 15:39 | CARD ---
APPROVED REPORT EXAM: Two-dimensional and M-mode echocardiogram with Doppler and color Doppler. Other Information Quality : GoodRhythm : NSR INDICATION Dyspnea Mitral Valve Prolapse 11 weeks preg./ hypoten. 2D DIMENSIONS IVSd0.7 (0.7-1.1cm)LVDd4.6 (3.9-5.9cm) PWd0.8 (0.7-1.1cm)LVDs2.8 (2.5-4.0cm) FS (%) 37.7 %LVEF (%)67.9 (>50%) M-Mode DIMENSIONS Left Atrium (MM)3.05 (2.5-4.0cm)Aortic Root2.69 (2.2-3.7cm) Aortic Cusp Exc.1.89 (1.5-2.0cm) Mitral Valve MV E Aytgtmut19.6cm/sMV A Ricovbdq04.2cm/sE/A ratio1.8 TDI E/Lateral E'0.0E/Medial E'0.0 Tricuspid Valve TR Peak Lpufuphy386so/sTR Peak [id number] LEFT VENTRICLE The left ventricle is normal size. There is normal left ventricular wall thickness. The left ventricular function is normal. The left ventricular ejection fraction is within the normal range. There is normal LV segmental wall motion. The left ventricular diastolic function is normal. RIGHT VENTRICLE The right ventricle is normal size. ATRIA The left atrium size is normal. The right atrium size is normal. AORTIC VALVE The aortic valve is normal in structure. MITRAL VALVE The mitral valve is normal in structure. TRICUSPID VALVE The tricuspid valve is normal in structure. <Conclusion> Normal LV systolic function. Normal chamber size. No significant valvular abnormality seen.
--- NOTE | 2017-02-20 15:58 | CARD ---
APPROVED REPORT EKG Measurement Heart [id number] <Conclusion> Normal sinus rhythm Normal ECG
[2017-02-20 17:22] LABS: THYROID STIMULATING HORMONE 0.78 mIU/L (0.46-4.68)
[2017-02-20 21:34] LABS: RBC URINE 2 /hpf (0-3); URINE BACTERIA RARE (<OCC); URINE BILIRUBIN NEGATIVE (NEGATIVE); URINE BLOOD NEGATIVE (NEGATIVE); URINE COLOR Yellow (YELLOW); URINE GLUCOSE (UA) NORMAL (Normal); URINE KETONE NEGATIVE (NEGATIVE); URINE PROTEIN NEGATIVE (NEGATIVE); URINE UROBILINOGEN NORMAL mg/dL (0.2-1.0); WBC URINE 1 /hpf (0-5)
[2017-02-20 21:38] LABS: URINE LEUKOCYTE ESTERASE NEGATIVE Leu/uL (Negative)
--- NOTE | 2017-02-20 22:13 | CP.PCM.PN ---
Subjective - Date & Time of Evaluation Date of Evaluation: 02/20/17 Time of Evaluation: 17:30 - Subjective Subjective: Patient with hypotension ECHO: Normal EKG: Normal Previous cath normal Non cardiac etiology Likely related to Hydration and appropriate diet Objective - Vital Signs/Intake and Output Vital Signs (last 24 hours): Temp Pulse Resp BP Pulse Ox 98 F 71 18 88/48 L 95 02/20/17 15:14 02/20/17 16:00 02/20/17 15:14 02/20/17 15:14 02/20/17 15:14 - Medications Medications: Current Medications Metoclopramide HCl (Reglan) 10 mg IVP Q8H PRN PRN Reason: Nausea/Vomiting Multivit/Folic Acid/Iron () 1 tab PO DAILY [facility]CTOR M Last Admin: 02/20/17 10:51 Dose: 1 tab - Labs Labs: 02/20/17 08:15 02/20/17 08:15
[2017-02-21 00:54] VITALS: RESP 20
[2017-02-21 07:55] VITALS: BP 102/69; TEMP 97.4; O2SAT 98
[2017-02-21 09:37] LABS: BASO % 0.7 % (0.0-2.0); EOS # 0.1 K/uL (0.0-0.7); EOS % 1.1 % (0.0-4.0); HEMATOCRIT 33.4 % (34.0-47.0); LYMPH % 36.4 % (20.0-40.0); MEAN CELL VOLUME 84.2 fL (81.0-99.0); MEAN CORPUSCULAR HEMOGLOBIN 28.2 pg (27.0-31.0); MEAN CORPUSCULAR HGB CONC 33.5 g/dL (33.0-37.0); MEAN PLATELET VOLUME 7.6 fL (7.2-11.7); MONO # 0.5 K/uL (0.0-0.8); MONO % 9.3 % (0.0-10.0); RED CELL DISTRIBUTION WIDTH 13.5 % (11.5-14.5); WHITE BLOOD COUNT 5.6 K/uL (4.8-10.8)
[2017-02-21 09:49] LABS: CHLORIDE 106 mmol/L (98-107); POTASSIUM 3.8 mmol/L (3.6-5.2); SODIUM 136 mmol/L (132-148)
[2017-02-21] MEDS: Prenatal Multivit/Folic Acid/Iron Tab PO SCH (09:49)
[2017-02-21 09:51] LABS: ALB/GLOB RATIO 1.2 (1.0-2.1); ALKALINE PHOSPHATASE 42 U/L (38-126); AST/SGOT 17 U/L (14-36); BILIRUBIN,TOTAL 1.1 mg/dL (0.2-1.3); CARBON DIOXIDE 21 mmol/L (22-30); GFR AFRICAN-AMERICAN > 60; TOTAL PROTEIN 6.9 g/dL (6.3-8.3)
[2017-02-21 09:52] LABS: ALT/SGPT 21 U/L (9-52); BLOOD UREA NITROGEN 5 mg/dL (7-17); CALCIUM 8.9 mg/dl (8.6-10.4); GLUCOSE,RANDOM 85 mg/dL (65-105); MAGNESIUM 1.7 mg/dL (1.6-2.3); PHOSPHOROUS 3.7 mg/dL (2.5-4.5)
[2017-02-21 11:49] VITALS: PULSE 84
--- NOTE | 2017-02-21 11:51 | CP.PCM.DIS ---
Provider - Provider Date of Admission: 02/19/17 06:10 Attending physician: Garo Barba Jr, MD Consults: Dr. Sam (cardio) Dr. Acevedo (obgyn) Time Spent in preparation of Discharge (in minutes): 45 Diagnosis - Discharge Diagnosis (1) Lightheadedness Status: Acute (2) Other hypotension Status: Acute (3) Status: Acute Hospital Course - Lab Results Lab Results: Most Recent Lab Values WBC 5.6 K/uL (4.8-10.8) 02/21/17 09:25 RBC 3.96 Mil/uL (3.80-5.20) 02/21/17 09:25 Hgb 11.2 g/dL (11.0-16.0) 02/21/17 09:25 Hct 33.4 % (34.0-47.0) L 02/21/17 09:25 MCV 84.2 fL (81.0-99.0) 02/21/17 09:25 MCH 28.2 pg (27.0-31.0) 02/21/17 09:25 MCHC 33.5 g/dL (33.0-37.0) 02/21/17 09:25 RDW 13.5 % (11.5-14.5) 02/21/17 09:25 Plt Count 248 K/uL (130-400) 02/21/17 09:25 MPV 7.6 fL (7.2-11.7) 02/21/17 09:25 Neut % (Auto) 52.5 % (50.0-75.0) 02/21/17 09:25 Lymph % (Auto) 36.4 % (20.0-40.0) 02/21/17 09:25 [place] % (Auto) 9.3 % (0.0-10.0) 02/21/17 09:25 Eos % (Auto) 1.1 % (0.0-4.0) 02/21/17 09:25 Baso % (Auto) 0.7 % (0.0-2.0) 02/21/17 09:25 Neut # 2.9 K/uL (1.8-7.0) 02/21/17 09:25 Lymph # 2.0 K/uL (1.0-4.3) 02/21/17 09:25 [place] # 0.5 K/uL (0.0-0.8) 02/21/17 09:25 Eos # 0.1 K/uL (0.0-0.7) 02/21/17 09:25 Baso # 0.0 K/uL (0.0-0.2) 02/21/17 09:25 Sodium 136 mmol/L (132-148) 02/21/17 09:25 Potassium 3.8 mmol/L (3.6-5.2) 02/21/17 09:25 Chloride 106 mmol/L (98-107) 02/21/17 09:25 Carbon Dioxide 21 mmol/L (22-30) L 02/21/17 09:25 Anion Gap 13 (10-20) 02/21/17 09:25 BUN 5 mg/dL (7-17) L 02/21/17 09:25 Creatinine 0.6 MG/DL (0.7-1.2) L 02/21/17 09:25 Est GFR ( Amer) > 60 02/21/17 09:25 Est GFR (Non-Af Amer) > 60 02/21/17 09:25 Random Glucose 85 mg/dL (65-105) 02/21/17 09:25 Calcium 8.9 mg/dl (8.6-10.4) 02/21/17 09:25 Phosphorus 3.7 mg/dL (2.5-4.5) 02/21/17 09:25 Magnesium 1.7 mg/dL (1.6-2.3) 02/21/17 09:25 Total Bilirubin 1.1 mg/dL (0.2-1.3) 02/21/17 09:25 AST 17 U/L (14-36) 02/21/17 09:25 ALT 21 U/L (9-52) 02/21/17 09:25 Alkaline Phosphatase 42 U/L (38-126) 02/21/17 09:25 Total Creatine Kinase 45 U/L (30-135) 02/19/17 22:55 CK-MB (Mass) < 0.22 ng/mL (0.0-3.38) 02/19/17 22:55 Troponin I, Quant < 0.0120 ng/mL (0.00-0.120) 02/19/17 22:55 Total Protein 6.9 g/dL (6.3-8.3) 02/21/17 09:25 Albumin 3.8 g/dL (3.5-5.0) 02/21/17 09:25 Globulin 3.1 gm/dL (2.2-3.9) 02/21/17 09:25 Albumin/Globulin Ratio 1.2 (1.0-2.1) 02/21/17 09:25 Amylase 62 U/L (30-110) 02/20/17 16:40 Lipase 46 U/L (23-300) 02/20/17 16:40 Free T4 0.88 ng/dL (0.78-2.19) 02/20/17 19:56 TSH 3rd Generation 0.78 mIU/L (0.46-4.68) 02/20/17 16:40 Beta HCG, Quant 42485.00 mIU/ML 02/19/17 00:34 Urine Color Yellow (YELLOW) 02/20/17 21:10 Urine Clarity Clear (Clear) 02/20/17 21:10 Urine pH 7.0 (5.0-8.0) 02/20/17 21:10 Ur Specific [place] 1.011 (1.003-1.030) 02/20/17 21:10 Urine Protein Negative mg/dL (NEGATIVE) 02/20/17 21:10 Urine Glucose (UA) Normal mg/dL (Normal) 02/20/17 21:10 Urine Ketones Negative mg/dL (NEGATIVE) 02/20/17 21:10 Urine Blood Negative (NEGATIVE) 02/20/17 21:10 Urine Nitrate Negative (NEGATIVE) 02/20/17 21:10 Urine Bilirubin Negative (NEGATIVE) 02/20/17 21:10 Urine Urobilinogen Normal mg/dL (0.2-1.0) 02/20/17 21:10 Ur Leukocyte Esterase Negative Bettie/uL (Negative) 02/20/17 21:10 Urine WBC (Auto) 1 /hpf (0-5) 02/20/17 21:10 Urine RBC (Auto) 2 /hpf (0-3) 02/20/17 21:10 Ur Squamous Epith Cells 1 /hpf (0-5) 02/20/17 21:10 Urine Bacteria Rare (<OCC) 02/20/17 21:10 - Hospital Course Hospital Course: CC: "Lightheaded and dizzy" HPI: 41 year old female with past medical history of hypotension and who is currently 11 weeks who presents to the emergency room for lightheadedness and dizziness. Patient states she has had hypotension in the past and has seen Dr. Sam for these symptoms and has had a cath procedure done in 2013 and nothing was found. She states she has not lost consciousness but she feels very lightheaded where she had to lay down because she does feel like she will pass out. Patient also states she does have shortness of breath, headache, nausea, and vomiting. She denies chest pain, palpitations, fever, diarrhea, constipation, vaginal discharge, or vaginal bleeding. She states Dr. Sam told her to come to the hospital yesterday but she could not stay because she had to go to work in [place] so today she has come to the hospital to follow up why her symptoms are persistent. She states she did see her Technician about a few days ago and everything was normal with the and she has to follow up appointment in 2 weeks. " Hospital Course: Dizziness/Lightheaded: Cardiology (Dr. Sam) was consulted. Echocardiogram was obtained which showed normal LV systolic function, normal chamber size, and no significant valvular abnormality was seen. LVEF is 67.9%. Electrocardiogram was normal. Previous catheterization was normal. Patient had three negative troponins. Orthostatic vitals: lying down 100/63, sitting 110/69, standing 106/ 69. 02/20 labs showed amylase 62, lipase 46, free T4 0.88, TSH 3rd generation 0.78. 02/20 urinalysis was normal. Patient stable for discharge as per Dr. Sam. 11 weeks : Patient was treated with vitamins. OBGYN ([facility]) was consulted on 02/20/17. Transvaginal and pelvic ultrasound was disregarded as patient had an ultrasound with OBGYN on 02/17. Patient to continue with her OBGYN as an outpatient. Nausea: Patient was treated with NS 75mls/hr and Reglan 10mg po q8h prn. Hx of Gilbert Syndrome: Gilbert disease is stable as of 02/20. Prophylactic treatment: Patient was ambulatory and no SCDS were needed. Patient feeling much better. Patient stable for discharge as per Dr. Barba, Dr. Acevedo, and Dr. Sam. This is a summary of the patient's hospital course, please see chart for details. Discharge Exam - Head Exam Head Exam: ATRAUMATIC, NORMAL INSPECTION, NORMOCEPHALIC - Eye Exam Eye Exam: EOMI, Normal appearance - Neck Exam Neck exam: Full Rom - Respiratory Exam Respiratory Exam: Clear to PA & Lateral, NORMAL BREATHING PATTERN, UNREMARKABLE - Cardiovascular Exam Cardiovascular Exam: REGULAR RHYTHM, RRR. absent: Gallop, Rubs, Systolic Murmur - GI/Abdominal Exam GI & Abdominal Exam: Normal Bowel Sounds - Extremities Exam Extremities exam: full ROM, normal inspection - Neurological Exam Neurological exam: Alert, Oriented x3 - Psychiatric Exam Psychiatric exam: Normal Affect, Normal Mood - Skin Skin Exam: Intact, Normal Color, Warm Discharge Plan - Follow Up Plan Condition: FAIR Disposition: HOME/ ROUTINE Additional Instructions: Patient stable for discharge as per Dr. Barba. Patient to follow up with OBGYN within one week. Patient to continue taking her vitamins. Please return to [facility] if symptoms worsen or persist. Patient explained instructions who understands and agreed.
== END 2017-02-21 13:30 | disposition home or self-care (01) | DRG 781 ==
LOC: C.ER 22:04 → C.9E 02-19 06:10 → C.5S 02-19 11:35
PROVIDERS: ADMIT Family Medicine; ATTEND Internal Medicine
DX: O99.411 Diseases of the circulatory system complicating pregnancy, first trimester (principal); I95.9 Hypotension, unspecified; O99.611 Diseases of the digestive system complicating pregnancy, first trimester; K21.9 Gastro-esophageal reflux disease without esophagitis; O21.9 Vomiting of pregnancy, unspecified; R42 Dizziness and giddiness; Z3A.11 11 weeks gestation of pregnancy; Z87.442 Personal history of urinary calculi; O09.521 Supervision of elderly multigravida, first trimester; Z83.3 Family history of diabetes mellitus